=== PATIENT | male | born 1935 | race Caucasian/White ===

== ENCOUNTER 2023-05-18 10:09 | Emergency (ER) | payer OTHER, SELFPAY ==
[2023-05-18 10:12] VITALS: BP 180/95
[2023-05-18 10:44] LABS: Urine Albumin 1+ (Neg - Trace); Urine Bilirubin Negative (Negative); Urine Character Clear (Clear); Urine Color Straw; Urine Glucose 3+ (Negative); Urine Ketone 2+ (Negative); Urine Leukocyte 2+ (Negative); Urine Nitrite Negative (Negative); Urine Occult Blood 2+ (Negative); Urine Urobilinogen Negative (Neg - 1+)
[2023-05-18 10:59] LABS: Urine Bacteria Few (Negative); Urine Red Blood Cell 40-50 /HPF (0-2)
--- NOTE | 2023-05-18 11:24 | ED.GENMED ---
History of Present Illness
General
Chief Complaint: Flank Pain
Source: patient and spouse
Exam Limitations: none
Time Seen by Provider: 05/18/23 11:12
Nursing documentation reviewed up to this point in time: agreed with
Travel History
Have you had any contact with someone who has COVID-19?: No
Do you have any symptoms of coronavirus? Fever > 100 degrees, chills, cough, shortness of breath, sore throat, loss of taste or smell, muscle aches, or headache?: No
History of Present Illness
History of Present Illness:
87-year-old male with history of TIA, A-fib on Eliquis, CHF, HTN, HLD, pacemaker, UTI, BPH, NIDDM, a remote history of a kidney stone presents with left flank pain since yesterday, vomited once this morning, pain now sitting is 2/10 but if he stands
it goes up to 10/10. He denies fever or chills.
Past History
Past History
ED Past Medical History: Arrthythmia (Atrial fibrillation), CAD, CVA (TIA), HTN, Hypercholesterolemia, NIDDM, Other (Spinal stenosis, rheumatoid arthritis, gout, anemia, eczema,) and Other (Remote history of kidney stone)
ED Past Surgical History: Cardiac, Cholecystectomy (03/16/2014), Orthopedic (lumbar laminectomy, spinal fusion.) and Other (Left wrist carpal tunnel repair.)
Social History
Tobacco: Former smoker
Alcohol: None
Drug: None
Personal:
Living: with family
Employment: Retired
Family History
Family History: Other (Noncontributory)
Review of Systems
Review of Systems
Allergies reviewed?: Yes
All Other Systems: ROS reviewed and negative except as documented in HPI and ROS
Constitutional: Denies fever or chills
Respiratory: Denies trouble breathing
Cardiac: Denies chest pain
ABD/GI: Reports vomiting (Vomited once this morning, denies nausea at this time); Denies abdominal pain
: Reports flank pain (Left); Denies dysuria, difficulty voiding, urgency or bleeding
Musculoskeletal: Reports no symptoms
Skin: Reports no symptoms
Neurological: Reports no symptoms
Phy Exam
Physical Exam
Physical Exam:
GENERAL: No acute distress. A&Ox3.
CONSTITUTIONAL: Afebrile.
RESPIRATORY: Regular respirations, nonlabored, lungs clear.
CARDIOVASCULAR: Regular rate and rhythm, no murmurs, no rubs.
GI: Soft, nontender, normal BS, left flank tenderness
MUSCULOSKELETAL: Moves with ease. Well perfused. Rotating torso to affected side does not elicit pain, rotation to opposite side elicits pain. Full flexion of spine with little discomfort. Palpation of left para lumbar ST elicits pain.
SKIN: Warm, dry, pink
PSYCH: Normal mood and affect. Well kept, interactive and appropriate
NEUROLOGIC: Awake, alert and oriented. No focal neurological deficits
Course
Orders/Labs/Results
Orders:
Orders
05/18/23 10:21
Urinalysis Reflex To Culture Urgent
Date Specimen was Collected: 05/18/23
Time Specimen was Collected: 10:16
Urine Microscopic Reflex Cult Urgent
Urine Culture Urgent
DAYANARA Source: U
Specimen Description:
Date Specimen was Collected: 05/18/23
Time Specimen was Collected: 10:16
05/18/23 11:21
IV Insert/Care/Rem.- Treatment PRN
05/18/23 11:23
CT Abd/pel Without Iv Or Oral Urgent
Comment:
Reason For Exam: L flank pain
HYDROmorphone [Dilaudid] 0.5 mg .ROUTE .STK-MED ONE
HYDROmorphone [Dilaudid] 0.5 mg IV NOW STA
Ondansetron Injectable [Zofran] 4 mg .ROUTE .STK-MED ONE
Ondansetron Injectable [Zofran] 4 mg IV NOW STA
05/18/23 11:43
Comprehensive Metabolic Panel Urgent
Lipase Urgent
Comment: LIPASE ADDED ON BY FLOOR 1PM 05-18-23
05/18/23 11:59
Complete Blood Count/With Diff Urgent
05/18/23 13:06
Add On- LAB Urgent
Tests Added?: Lipase
Abnormal Lab Results
05/18/23 05/18/23 05/18/23
10:21 11:43 11:59
RBC 4.39 L 10^6/uL
(4.70-6.10)
MCV 94.8 H fL
(80.0-94.0)
MCH 32.1 H pg
(27.0-31.0)
RDW 14.9 H %
(11.5-14.5)
MPV 10.6 H fL
(7.4-10.4)
Absolute Neuts (auto) 7.4 H 10^3/uL
(1.4-6.5)
Absolute Lymphs (auto) 1.1 L 10^3/uL
(1.2-3.4)
Neutrophils % 82.6 H %
(42.2-75.2)
Lymphocytes % 11.8 L %
(20.5-51.1)
Creatinine 0.6 L mg/dL
(0.7-1.3)
Glucose 181 H mg/dl
(70-99)
Total Bilirubin 1.4 H mg/dl
(0.2-1.3)
Total Protein 5.9 L g/dl
(6.3-8.2)
Urine Ketones 2+ A
(Negative)
Ur Occult Blood Reflex 2+ A
(Negative)
Leukocyte Esterase Rfl 2+ A
(Negative)
Urine RBC 40-50 A /HPF
(0-2)
Urine Bacteria (Reflex) Few A
(Negative)
Urine Glucose 3+ A
(Negative)
Urine Albumin (Reflex) 1+ A
(Neg - Trace)
05/18/23 11:59
05/18/23 11:43
Vital Signs
Initial and Last Documented VS:
Initial Vital Signs
Temp Pulse Resp BP Pulse Ox
97.6 F 76 20 180/95 96
05/18/23 10:12 05/18/23 10:12 05/18/23 10:12 05/18/23 10:12 05/18/23 10:12
Last Documented Vital Signs
Temp Pulse Resp BP Pulse Ox
97.6 F 61 15 168/70 96
05/18/23 10:12 05/18/23 12:08 05/18/23 12:08 05/18/23 12:39 05/18/23 12:39
MDM/Problems Addressed
Differential Diagnosis Includes:
Kidney stone, UTI
MDM/Problems Addressed:
87-year-old male with history of TIA, A-fib on Eliquis, CHF, HTN, HLD, pacemaker, UTI, BPH, NIDDM, a remote history of a kidney stone presents with left flank pain since yesterday, vomited once this morning, pain now sitting is 2/10 but if he stands
it goes up to 10/10. He denies fever or chills.
Afebrile, NAD
05/18/2023 1214 PM
UA showing 2+ occult blood, 2+ leukocyte Estrace, negative nitrites, 40-50 RBCs, 3-5 WBCs.
CBC without clinically significant abnormality
CMP with no clinically significant abnormality
UA with 40-50 RBCs, leukocytes 2+, no nitrites, 2+ occult blood, no WBCs
05/18/2023 1401 PM
CAT scan abdomen pelvis Radiology report reviewed:IMPRESSION:
Diverticulosis. No CT evidence for diverticulitis.
There is minimal stranding along the tail of the pancreas. This suggests mild inflammation and pancreatitis. Mild fluid along the lateral conal fascia. Please correlate with possible pancreatitis.
No hydronephrosis or kidney stones.
No free fluid or fluid collection. No free air.
Prior cholecystectomy. Minimal pneumobilia. Patient has had prior ERCP.
Patient's lipase is normal. Patient is nontender in the left upper quadrant of the abdomen
Pt now recalls having mild right lower back pain past week, 4 nights ago turned in bed and felt a 'tweak' of pain in right lower back 'at the exact site' of today's pain.
States the pain is worse in the mornings, this a.m. was the worst. Is worse with certain movements.
Workup here is neg for anything worrisome
Most likely musculoskeletal back pain.
Discussed the blood in the urine with no sign of a kidney stone and patient now informs me that in March he had urinary retention, had a Osoiro catheter in, discharged home after 2 days, urinated jordana blood again, admitted 04/06 for three-way
Osorio bladder irrigation which cleared urine, he was sent home. Few days later Dr. Ascencio removed catheter 04/13
Had a cystoscopy by Dr. Morales 05/03 which showed 'some scrapes of the bladder wall pro
Probably from the Osorio catheters,' he was told
This explains the hematuria. He has a follow-up appointment with urology on 05/31.
*Critical Care Note
Total Time (30-74mins, 75-104mins- exclusive of procedures): Not Applicable
ED Attending Note
-
Portions of this chart may have been created with voice recognition software.� Occasional wrong word or��sound alike� substitutions may have occurred due to the inherent limitations of voice recognition software.
Discharge Plan
Departure
Patient Disposition: Home (Routine Discharge)
Date of Disposition: 05/18/23
Time of Disposition: 14:09
Patient with high blood pressure during this ER visit?: No
Condition: Good
Discharge Problem:
Hematuria, Acute lumbar myofascial strain
Instructions: Back Muscle Strain (DC), Back Stretches Standing or Seated
Prescriptions:
New
cyclobenzaprine 10 mg tablet
10 mg PO HS PRN (Reason: muscle spasm) Qty: 5 0RF
No Action
glimepiride 1 MG tablet
1 mg PO DAILY Qty: 0
ferrous sulfate [FeroSul] 325 MG tablet
325 mg PO DAILY Qty: 0
methotrexate sodium 2.5 MG tablet
15 mg PO SA
mirtazapine 7.5 MG tablet
7.5 mg PO HS
PreserVision AREDS-2 1 EACH capsule
1 ea PO BID
atorvastatin 80 MG tablet
80 mg PO DAILY
fludrocortisone 0.1 MG tablet
0.1 mg PO DAILY
Jardiance 10 MG tablet
10 mg PO DAILY Qty: 30 0RF
metformin 500 mg Tablet
500 mg PO BID@0800,1700
Entresto 24-26 mg tablet
1 tab PO BID
metoprolol succinate 25 MG tablet extended release 24 hr
25 mg PO QPM
Eliquis 5 MG tablet
5 mg PO BID Qty: 0 0RF
cyanocobalamin (vitamin B-12) 500 mcg Tablet
500 mcg PO DAILY
potassium chloride 8 mEq Tablet Extended Release
8 meq PO DAILY
albuterol sulfate 90 mcg/actuation Hfa Aerosol Inhaler
2 puff INHALATION R Q6HPRN PRN (Reason: sob)
folic acid 800 mcg Tablet
0.8 mg PO DAILY
tamsulosin [Flomax] 0.4 mg capsule
0.4 mg PO DAILY Qty: 10 0RF
Referrals:
Maci Neil MD [Family Provider] - As needed
Activity Restrictions/Additional Instructions:
As we discussed, I sent a prescription to your pharmacy for Flexeril/cyclobenzaprine muscle relaxant. This can make you sleepy and slow the reflexes so do not drive or operate any machinery within 8 hours of taking it. Take it only at bedtime as
you could be at higher risk for falling during the day.
See your doctor if your back pain is not much improved within the next 7 to 10 days.
Move around as much as you comfortably can as sitting or laying still can stiffen up the area.
Heating pad may help.
Tylenol may also help
Interventions
Interventions:
*Risk Screen - Suicide Last Done: 05/18/23 11:28
*Neglect/Abuse Screening Last Done: 05/18/23 11:28
*ED COVID-19 Vaccine History Last Done: 05/18/23 11:28
*Nursing Disposition Last Done: 05/18/23 14:40
LC-Rlcoqg-Fvshmcwswa Assessment Last Done: 05/18/23 12:05
ED-Male Genitourinary Assessment Last Done: 05/18/23 11:50
Discharge Date and Time
Discharge Date/Time: 05/18/23 14:41
[2023-05-18] MEDS: ZOFRAN 4 MG IV (12:00)
[2023-05-18] MEDS: DILAUDID 0.5 MG IV (12:00)
[2023-05-18 12:08] VITALS: BP 134/68
[2023-05-18 12:16] LABS: % Basophils 0.2 % (0-2); % Eosinophils 0.7 % (0-6); % Immature Granulocytes 0.3 % (0-0.5); % Lymphocytes 11.8 % (20.5-51.1); % Monocytes 4.4 % (1.7-9.3); % Neutrophils 82.6 % (42.2-75.2); Absolute Eosinophils 0.1 10^3/uL (0-0.7); Absolute Lymphocytes 1.1 10^3/uL (1.2-3.4); Absolute Monocytes 0.4 10^3/uL (0.1-0.6); Absolute Neutrophils 7.4 10^3/uL (1.4-6.5); Hematocrit 41.6 % (39.0-52.0); Hemoglobin 14.1 g/dL (13.0-18.0); Mean Corp Hgb Conc. 33.9 g/dL (33.0-37.0); Mean Corpuscular Hgb 32.1 pg (27.0-31.0); Mean Corpuscular Volume 94.8 fL (80.0-94.0); Mean Platelet Volume 10.6 fL (7.4-10.4); Nucleated Red Blood Cells % 0 % (-); Platelet Count 198 10^3/uL (130-400); Red Blood Cell Count 4.39 10^6/uL (4.70-6.10); Red Cell Dist. Width 14.9 % (11.5-14.5); White Blood Cell Count 8.9 10^3/uL (4.8-10.8)
[2023-05-18 12:21] LABS: ALT (SGPT) 27 U/L (0-50); AST (SGOT) 38 U/L (17-59); Albumin 3.6 g/dl (3.5-5.0); Alkaline Phosphatase 86 U/L (38-126); Blood Urea Nitrogen 15 mg/dl (9-20); Calcium 9.1 mg/dl (8.4-10.2); Carbon Dioxide 23 mmol/L (22-30); Chloride 104 mmol/L (98-107); Glucose 181 mg/dl (70-99); Potassium 3.8 mmol/L (3.5-5.1); Sodium 137 mmol/L (135-145); Total Bilirubin 1.4 mg/dl (0.2-1.3); Total Protein 5.9 g/dl (6.3-8.2); eGFR > 60.00
[2023-05-18 12:39] VITALS: BP 168/70
[2023-05-18 13:20] LABS: Lipase 92 U/L (23-300)
== END 2023-05-18 14:41 | disposition home or self-care (01) ==
LOC: EMR 10:09
PROVIDERS: Registered Nurse; EMERGENCY PHYSICIAN Emergency Medicine; FAMILY PHYSICIAN Family Medicine
DX: R31.9 Hematuria, unspecified (principal); S39.012A Strain of muscle, fascia and tendon of lower back, initial encounter; X58.XXXA Exposure to other specified factors, initial encounter; R10.9 Unspecified abdominal pain; E11.9 Type 2 diabetes mellitus without complications; E78.5 Hyperlipidemia, unspecified; I11.0 Hypertensive heart disease with heart failure; I50.9 Heart failure, unspecified; I25.10 Atherosclerotic heart disease of native coronary artery without angina pectoris; I48.91 Unspecified atrial fibrillation; N40.0 Benign prostatic hyperplasia without lower urinary tract symptoms; M06.9 Rheumatoid arthritis, unspecified; Z79.01 Long term (current) use of anticoagulants; Z86.73 Personal history of transient ischemic attack (TIA), and cerebral infarction without residual deficits; Z87.440 Personal history of urinary (tract) infections; Z87.442 Personal history of urinary calculi; Z90.49 Acquired absence of other specified parts of digestive tract; Z95.0 Presence of cardiac pacemaker; Z98.1 Arthrodesis status; Z87.891 Personal history of nicotine dependence
CPT/HCPCS: 99284; 96374; 96375; 74176; 80053; 81003; 81015; 83690; 85025; 87086

== ENCOUNTER → 2024-02-03 11:31 | Outpatient (REF) | payer OTHER, SELFPAY | LOC: HWRAD 11:31 | PROVIDERS: ATTENDING PHYSICIAN Physician Assistant Surgical; FAMILY PHYSICIAN Family Medicine | DX: M48.062 Spinal stenosis, lumbar region with neurogenic claudication (principal); M54.50 Low back pain, unspecified; M41.86 Other forms of scoliosis, lumbar region; Z98.1 Arthrodesis status | CPT/HCPCS: 72131 ==